=== PATIENT | male | born 1945 | race Hispanic/Latino ===

== ENCOUNTER 2025-02-21 08:16 | Emergency (ER) | payer MEDICAID, MEDICARE ==
[~2025-02-21] VITALS: Ht 170.2 cm; Wt 72.6 kg
[2025-02-21 08:34] VITALS: TEMP 97.3
[2025-02-21 10:11] VITALS: PULSE 61; RESP 18
[2025-02-21 11:05] VITALS: BP 134/78; PULSE 68; RESP 18; TEMP 98.3; O2SAT 98
== END 2025-02-21 11:08 ==
LOC: ER 08:18
DX: M25.512 Pain in left shoulder (principal); M25.562 Pain in left knee; W06.XXXA Fall from bed, initial encounter; Y92.89 Other specified places as the place of occurrence of the external cause; I10 Essential (primary) hypertension; E78.5 Hyperlipidemia, unspecified; Z87.820 Personal history of traumatic brain injury
CPT/HCPCS: 70450; 72125; 99284